=== PATIENT | female | born 1955 | race Caucasian/White ===

== ENCOUNTER 2017-09-28 10:50 | Inpatient (IN) | payer MEDICARE ==
[~2017-09-28] VITALS: Ht 154.9 cm; Wt 62.6 kg
[~2017-09-28 10:50] MED LIST: ATOR20TA PO; BISA10SU12 RC; CITA20TA19 PO; CLON1TAB PO; DOCU-141 PO; EZET10TA13 PO; FLUT1DIS28 INH; HYDR-3326 PO; HYDR-548 PO; IBUP-1953 PO; LEVO500T2 PO; MULT1TAB73 PO; NA P133E RC; OMEP20TA20 PO; Oxycodone Hcl PO; Prednisone PO; TIOT18CA3 IH
[2017-09-28] MEDS ORDERED: CEFEPIME HCL 1 G in IV DEXTROSE 5% 50 ML IV ONE (11:15)
[2017-09-28] MEDS ORDERED: METRONIDAZOLE 500 MG/NS 100ML 100 ML IV ONE ×2 (11:15→11:21)
[2017-09-28] MEDS ORDERED: IV NORMAL SALINE 1000 ML BAG IV ONE (11:15)
[2017-09-28] MEDS ORDERED: VANCOMYCIN IV 1,000 MG in IV DEXTROSE 5% 250 ML IV ONE (11:15)
[2017-09-28] MEDS ORDERED: ZOLP5TAB2 PO (11:20)
[2017-09-28] MEDS ORDERED: CITA40TA22 PO (11:20)
[2017-09-28] MEDS ORDERED: PANT40TA2 PO (11:20)
[2017-09-28] MEDS ORDERED: CLON0.5T PO (11:20)
[2017-09-28] MEDS ORDERED: MAG-55 PO (11:20)
[2017-09-28] MEDS ORDERED: CEFEPIME HCL 1 G VIAL ONE (11:21)
[2017-09-28] MEDS ORDERED: VANCOMYCIN IV 200 ML ONE (11:21)
[2017-09-28 11:28] LABS: BASOPHILS # (AUTO) 0.1 K/uL (0.0-8.0); BASOPHILS % (AUTO) 0.4 % (0.0-2.0); EOSINOPHILS # (AUTO) 0.1 K/uL (0.0-0.7); EOSINOPHILS % (AUTO) 0.4 % (0.0-7.0); HEMATOCRIT 37.1 % (31.2-41.9); LYMPHOCYTES # (AUTO) 1.8 K/uL (20.0-40.0); LYMPHOCYTES % (AUTO) 10.4 % (20.5-51.5); MEAN CORPUSCULAR HEMOGLOBIN 27.8 uug (24.7-32.8); MEAN CORPUSCULAR HGB CONC 33 g/dL (32.3-35.6); MEAN CORPUSCULAR VOLUME 85.5 fL (75.5-95.3); MONOCYTES # (AUTO) 1.3 K/uL (2.0-10.0); MONOCYTES % (AUTO) 7.7 % (0.0-11.0); NEUTROPHILS # (AUTO) 13.9 K/uL (1.8-8.9); NEUTROPHILS % (AUTO) 81.1 % (38.5-71.5); PLATELET COUNT (AUTO) 295 K/uL (179-408); RED BLOOD CELL COUNT(AUTO) 4.34 MIL/uL (3.63-4.92); WHITE BLOOD COUNT (AUTO) 17.2 K/uL (3.8-11.8)
[2017-09-28 11:36] LABS: CREATININE 1.1 mg/dL (0.6-1.3)
[2017-09-28] MEDS ORDERED: HYDROCODONE/APAP 5-325MG TABLET PO ONE (11:45)
[2017-09-28 11:51] LABS: BILIRUBIN,DIRECT 0.1 mg/dL (0.0-0.2); BILIRUBIN,TOTAL 0.4 mg/dL (0.2-1.0); TOTAL PROTEIN, SERUM 8.2 g/dL (6.4-8.2)
[2017-09-28] MEDS ORDERED: HYDROCODONE/APAP 5-325MG TABLET ONE (12:02)
[2017-09-28 13:42] LABS: *BILIRUBIN,URIN NEGATIVE (NEGATIVE); *BLOOD, URINE Trace-intact (NEGATIVE); *CLARITY,URINE SLIGHTLY CLOUDY (CLEAR); *COLOR,URINE YELLOW (YELLOW); *KETONES,URINE NEGATIVE (NEGATIVE); *PROTEIN,URINE NEGATIVE (NEGATIVE); *UROBILINOGEN,URINE 0.2 E.U./dl (NORMAL); LEUKOCYTE ESTERASE ,URINE 1+ (NEGATIVE); NITRITE, URINE POSITIVE (NEGATIVE); UGLUCOSE NEGATIVE (NEGATIVE)
[2017-09-28 13:53] LABS: BACTERIA,URINE FEW /HPF (NONE SEEN); SQUAMOUS EPITHELIAL CELL,UR FEW /HPF (NONE SEEN); WBC,URINE 20-50 /HPF (0-3)
[2017-09-28 14:25] VITALS: BP 148/64
[2017-09-28 15:11] VITALS: BP 151/60
[2017-09-28] MEDS ORDERED: HYDROMORPHONE 1 MG/1 ML DISP.SYRIN IV PRN (16:00)
[2017-09-28] MEDS: methylPREDNISolone SOD SUCC 40 MG/ML VIAL IV SCH ×3 (16:43→20:26)
[2017-09-28] MEDS: HYDROMORPHONE 2 MG/1 ML DISP.SYRIN IV PRN ×2 (16:45→21:38)
[2017-09-28 20:30] VITALS: BP 91/74
[2017-09-28] MEDS ORDERED: FAMOTIDINE. 20 MG/2 ML VIAL IV SCH (21:00)
[2017-09-28] MEDS ORDERED: Medication Not On Formulary EA (Mag Hydrox/Al Hydrox/Simeth (Maalox Max Strength Susp) 3 PO SCH (23:00)
[2017-09-28] MEDS ORDERED: PIPERACILLIN SODIUM/TAZO 3.375 GM VIAL ONE (23:44)
[2017-09-29] MEDS: ZOLPIDEM 5 MG TABLET PO PRN ×2 (00:13→22:20)
[2017-09-29] MEDS: IV D5/ 0.9% NACL 1,000 ML IV PRN (00:14)
[2017-09-29] MEDS: HYDROMORPHONE 2 MG/1 ML DISP.SYRIN IV PRN ×3 (01:41→09:49)
[2017-09-29 04:40] VITALS: BP 127/63
[2017-09-29] MEDS: PIPERACILLIN/TAZOBACTAM/D5W 3.375 G in PREMIXED 1 EACH IV SCH ×3 (05:19→22:20)
[2017-09-29] MEDS: PANTOPRAZOLE SODIUM 40 MG TABLET.DR PO SCH (06:48)
[2017-09-29] MEDS ORDERED: MAG HYDROX/AL HYDROX/SIMETH 30 ML LIQUID UDC PO PRN (07:30)
[2017-09-29] MEDS: ACIDOPHILUS/BULGARICUS CHEW TAB PO SCH ×2 (08:06→20:11)
[2017-09-29] MEDS: CITALOPRAM 20 MG TABLET PO SCH (08:06)
[2017-09-29] MEDS ORDERED: CLONAZEPAM 0.5 MG TABLET PO SCH (09:00)
[2017-09-29 11:48] VITALS: BP 157/55
[2017-09-29] MEDS ORDERED: HYDROMORPHONE HCL 2 MG TABLET PO PRN (12:00)
[2017-09-29] MEDS ORDERED: VANCOMYCIN IV 1 G in PREMIXED 0 EACH IV ONE (13:00)
[2017-09-29] MEDS: VANCOMYCIN IV 1 G in PREMIXED 0 EACH IV SCH (13:55)
[2017-09-29] MEDS: MORPHINE SULFATE IR 30 MG TABLET PO PRN ×2 (14:01→20:11)
[2017-09-29 15:50] VITALS: BP 155/73
[2017-09-29] MEDS: CLONAZEPAM 0.5 MG TABLET PO SCH ×3 (15:56→21:27)
[2017-09-29 20:28] VITALS: BP 155/62
[2017-09-30] MEDS: IV D5/ 0.9% NACL 1,000 ML IV PRN ×2 (01:56→18:16)
[2017-09-30] MEDS: MORPHINE SULFATE IR 30 MG TABLET PO PRN ×3 (02:11→17:59)
[2017-09-30 04:26] VITALS: BP 160/67
[2017-09-30] MEDS: PIPERACILLIN/TAZOBACTAM/D5W 3.375 G in PREMIXED 1 EACH IV SCH ×3 (05:09→22:02)
[2017-09-30] MEDS: PANTOPRAZOLE SODIUM 40 MG TABLET.DR PO SCH (06:32)
[2017-09-30] MEDS: CLONAZEPAM 0.5 MG TABLET PO SCH ×3 (08:25→17:59)
[2017-09-30] MEDS: ACIDOPHILUS/BULGARICUS CHEW TAB PO SCH ×2 (08:25→20:55)
[2017-09-30] MEDS: CITALOPRAM 20 MG TABLET PO SCH (08:25)
[2017-09-30 09:35] LABS: BASOPHILS # (AUTO) 0.1 K/uL (0.0-8.0); BASOPHILS % (AUTO) 0.5 % (0.0-2.0); EOSINOPHILS # (AUTO) 0.1 K/uL (0.0-0.7); EOSINOPHILS % (AUTO) 0.4 % (0.0-7.0); HEMATOCRIT 34.1 % (31.2-41.9); HEMOGLOBIN 11.3 g/dL (10.9-14.3); LYMPHOCYTES # (AUTO) 2.9 K/uL (20.0-40.0); LYMPHOCYTES % (AUTO) 18.8 % (20.5-51.5); MEAN CORPUSCULAR HEMOGLOBIN 28.1 uug (24.7-32.8); MEAN CORPUSCULAR HGB CONC 33 g/dL (32.3-35.6); MEAN CORPUSCULAR VOLUME 85.2 fL (75.5-95.3); MONOCYTES # (AUTO) 0.9 K/uL (2.0-10.0); MONOCYTES % (AUTO) 5.8 % (0.0-11.0); NEUTROPHILS # (AUTO) 11.4 K/uL (1.8-8.9); NEUTROPHILS % (AUTO) 74.5 % (38.5-71.5); PLATELET COUNT (AUTO) 217 K/uL (179-408); RED BLOOD CELL COUNT(AUTO) 4.01 MIL/uL (3.63-4.92); WHITE BLOOD COUNT (AUTO) 15.3 K/uL (3.8-11.8)
[2017-09-30 09:47] LABS: CREATININE 0.9 mg/dL (0.6-1.3); MAGNESIUM 1.6 mg/dL (1.8-2.4); PHOSPHOROUS 3.5 mg/dL (2.5-4.9); POTASSIUM 3.5 mmol/L (3.5-5.1)
[2017-09-30 11:50] VITALS: BP 122/53
[2017-09-30] MEDS: VANCOMYCIN IV 1 G in PREMIXED 0 EACH IV SCH (12:28)
[2017-09-30] MEDS ORDERED: MORPHINE SULFATE 2 MG/1 ML DISP.SYRIN IV PRN (14:15)
[2017-09-30] MEDS: MORPHINE SULFATE 4 MG/1 ML DISP.SYRIN IV PRN ×2 (14:56→20:58)
[2017-09-30 15:50] VITALS: BP 108/71
[2017-09-30 20:28] VITALS: BP 103/73
[2017-10-01 03:20] VITALS: BP 114/59
[2017-10-01] MEDS: MORPHINE SULFATE 4 MG/1 ML DISP.SYRIN IV PRN ×2 (03:21→09:10)
[2017-10-01 04:28] VITALS: BP 122/50
[2017-10-01] MEDS: PIPERACILLIN/TAZOBACTAM/D5W 3.375 G in PREMIXED 1 EACH IV SCH ×2 (05:05→13:00)
[2017-10-01] MEDS: IV D5/ 0.9% NACL 1,000 ML IV PRN (06:30)
[2017-10-01] MEDS: PANTOPRAZOLE SODIUM 40 MG TABLET.DR PO SCH (06:30)
[2017-10-01 07:14] LABS: BASOPHILS % (AUTO) 0.6 % (0.0-2.0); EOSINOPHILS # (AUTO) 0.2 K/uL (0.0-0.7); EOSINOPHILS % (AUTO) 2.5 % (0.0-7.0); HEMATOCRIT 32.1 % (31.2-41.9); HEMOGLOBIN 10.5 g/dL (10.9-14.3); LYMPHOCYTES # (AUTO) 2.9 K/uL (20.0-40.0); LYMPHOCYTES % (AUTO) 34.2 % (20.5-51.5); MEAN CORPUSCULAR HEMOGLOBIN 27.9 uug (24.7-32.8); MEAN CORPUSCULAR HGB CONC 33 g/dL (32.3-35.6); MEAN CORPUSCULAR VOLUME 84.8 fL (75.5-95.3); MONOCYTES # (AUTO) 0.9 K/uL (2.0-10.0); MONOCYTES % (AUTO) 10.6 % (0.0-11.0); NEUTROPHILS # (AUTO) 4.4 K/uL (1.8-8.9); NEUTROPHILS % (AUTO) 52.1 % (38.5-71.5); PLATELET COUNT (AUTO) 233 K/uL (179-408); RED BLOOD CELL COUNT(AUTO) 3.78 MIL/uL (3.63-4.92); WHITE BLOOD COUNT (AUTO) 8.5 K/uL (3.8-11.8)
[2017-10-01] MEDS: MORPHINE SULFATE IR 30 MG TABLET PO PRN (07:37)
[2017-10-01] MEDS: CITALOPRAM 20 MG TABLET PO SCH (08:23)
[2017-10-01] MEDS: ACIDOPHILUS/BULGARICUS CHEW TAB PO SCH (08:23)
[2017-10-01] MEDS: CLONAZEPAM 0.5 MG TABLET PO SCH ×3 (08:24→16:18)
[2017-10-01 08:37] LABS: CREATININE 0.6 mg/dL (0.6-1.3); MAGNESIUM 1.9 mg/dL (1.8-2.4); PHOSPHOROUS 4.1 mg/dL (2.5-4.9); POTASSIUM 3.7 mmol/L (3.5-5.1)
[2017-10-01] MEDS ORDERED: diphenhydrAMINE 25 MG CAP PO PRN (11:30)
[2017-10-01 11:39] VITALS: BP 109/46
[2017-10-01] MEDS: OXYCODONE/APAP 5-325 MG TABLET PO SCH ×2 (12:09→16:18)
[2017-10-01] MEDS ORDERED: VANCOMYCIN IV 1,750 MG in IV NORMAL SALINE 500 ML IV ONE (14:00)
[2017-10-01 16:30] VITALS: BP 107/60
[2017-10-01] MEDS ORDERED: CITA40TA22 PO (20:23)
[2017-10-01] MEDS ORDERED: ZOLP5TAB2 PO (20:23)
[2017-10-01] MEDS ORDERED: DIPH25CA83 PO (20:23)
[2017-10-01] MEDS ORDERED: RXVAN IV (20:23)
[2017-10-01] MEDS ORDERED: PANT40TA2 PO (20:23)
[2017-10-01] MEDS ORDERED: CLON0.5T PO (20:23)
[2017-10-01] MEDS ORDERED: OXYC-128 PO (20:23)
[2017-10-01] MEDS ORDERED: MAG-55 PO (20:23)
[2017-10-01] MEDS ORDERED: ACID1TAB12 PO (20:23)
[2017-10-01] MEDS ORDERED: PIPE3.379 IV (20:23)
[2017-10-05] MEDS ORDERED: CLON0.5T4 PO (11:44)
[2017-10-05] MEDS ORDERED: CITA20TA19 PO (11:44)
[2017-10-05] MEDS ORDERED: HYDR-3895 PO (11:44)
[2017-10-05] MEDS ORDERED: RXVAN XX (11:44)
== END 2017-10-01 19:00 | DRG 872 ==
LOC: ER 10:50 → MED 13:51 → MERGE 13:51
PROVIDERS: ADMIT Internal Medicine; ATTEND Internal Medicine
DX: A41.02 Sepsis due to Methicillin resistant Staphylococcus aureus (principal); I11.9 Hypertensive heart disease without heart failure; F32.9 Major depressive disorder, single episode, unspecified; L03.211 Cellulitis of face; N39.0 Urinary tract infection, site not specified; K13.0 Diseases of lips; B95.62 Methicillin resistant Staphylococcus aureus infection as the cause of diseases classified elsewhere; G89.4 Chronic pain syndrome; M79.7 Fibromyalgia; Z59.0 Homelessness; K08.109 Complete loss of teeth, unspecified cause, unspecified class; Z91.19 Patient's noncompliance with other medical treatment and regimen; B96.20 Unspecified Escherichia coli [E. coli] as the cause of diseases classified elsewhere; F41.9 Anxiety disorder, unspecified; J44.9 Chronic obstructive pulmonary disease, unspecified; A49.02 Methicillin resistant Staphylococcus aureus infection, unspecified site
CPT/HCPCS: 36415; 70030-TC; 70486; 71045; 83605; 83735; 84100; 85025; 85730; 87040; 87070; 87077; 87086; 87400; 93005; A4663; J0692; J1170; J2270; J2543; J2920; J3370; J3490; J7030; J7040; J7042; Q0163

== ENCOUNTER 2017-10-01 17:46 | Inpatient (IN) | payer MEDICARE ==
[~2017-10-01] VITALS: Ht 154.9 cm; Wt 60.8 kg
[~2017-10-01 17:46] MED LIST changes: +CITA40TA22 PO; +CLON0.5T PO; +MAG-55 PO; +PANT40TA2 PO; +ZOLP5TAB2 PO
[2017-10-01] MEDS ORDERED: ACETAMINOPHEN 325 MG TABLET PO PRN (18:30)
[2017-10-01] MEDS ORDERED: MAGNESIUM HYDROXIDE 30 ML LIQUID UDC PO PRN (18:30)
[2017-10-01] MEDS ORDERED: MAG HYDROX/AL HYDROX/SIMETH 30 ML LIQUID UDC PO PRN (18:30)
[2017-10-01] MEDS ORDERED: ZOLPIDEM 5 MG TABLET PO PRN (18:30)
[2017-10-01] MEDS: LORAZEPAM 1 MG TABLET PO PRN (19:51)
[2017-10-01] MEDS ORDERED: OXYC-128 PO (20:23)
[2017-10-01] MEDS ORDERED: ZOLP5TAB2 PO (20:23)
[2017-10-01] MEDS ORDERED: CITA40TA22 PO (20:23)
[2017-10-01] MEDS ORDERED: RXVAN IV (20:23)
[2017-10-01] MEDS ORDERED: PIPE3.379 IV (20:23)
[2017-10-01] MEDS ORDERED: ACID1TAB12 PO (20:23)
[2017-10-01] MEDS ORDERED: PANT40TA2 PO (20:23)
[2017-10-01] MEDS ORDERED: MAG-55 PO (20:23)
[2017-10-01] MEDS ORDERED: CLON0.5T PO (20:23)
[2017-10-01] MEDS ORDERED: DIPH25CA83 PO (20:23)
[2017-10-01] MEDS ORDERED: BULGARICUS PO SCH (21:00)
[2017-10-01] MEDS ORDERED: Medication Not On Formulary EA (Diphenhydramine Hcl (Benadryl) 25 MG) PO PRN (21:00)
[2017-10-01] MEDS ORDERED: ZOLPIDEM 5 MG TABLET PO SCH (21:00)
[2017-10-01] MEDS ORDERED: ACIDOPHILUS PO SCH (21:00)
[2017-10-01] MEDS ORDERED: Medication Not On Formulary EA (Mag Hydrox/Al Hydrox/Simeth (Maalox Max Strength Susp) 3 PO SCH ×2 (21:00)
[2017-10-01 21:02] VITALS: BP 105/38
[2017-10-01] MEDS: OXYCODONE/APAP 5-325 MG TABLET PO PRN (21:15)
[2017-10-01] MEDS ORDERED: PIPERACILLIN/TAZOBACTAM/D5W 100 ML IV ONE (21:51)
[2017-10-01 21:56] VITALS: BP 118/54
[2017-10-01] MEDS: PIPERACILLIN/TAZO/D5W 3.375 GM FROZEN IV SCH (22:29)
[2017-10-02] MEDS: OXYCODONE/APAP 5-325 MG TABLET PO PRN ×5 (01:20→18:02)
[2017-10-02] MEDS: PIPERACILLIN/TAZO/D5W 3.375 GM FROZEN IV SCH (05:53)
[2017-10-02 07:30] LABS: CREATININE 0.7 mg/dL (0.6-1.3); POTASSIUM 4.1 mmol/L (3.5-5.1)
[2017-10-02] MEDS ORDERED: PANTOPRAZOLE SODIUM 40 MG TABLET.DR PO SCH (07:30)
[2017-10-02] MEDS: PANTOPRAZOLE SODIUM 40 MG TABLET.DR PO SCH (07:58)
[2017-10-02] MEDS: ACIDOPHILUS/BULGARICUS CHEW TAB GT SCH ×2 (08:00→20:27)
[2017-10-02] MEDS: LORAZEPAM 1 MG TABLET PO PRN (08:06)
[2017-10-02] MEDS ORDERED: HYDROXYZINE PAMOATE 25 MG CAPSULE PO PRN (09:00)
[2017-10-02] MEDS ORDERED: CLONAZEPAM 0.5 MG TABLET PO SCH (09:00)
[2017-10-02] MEDS ORDERED: VANCOMYCIN IV 1 G in PREMIXED 0 EACH IV SCH (09:00)
[2017-10-02] MEDS: CITALOPRAM 20 MG TABLET PO SCH (10:35)
[2017-10-02 10:54] VITALS: BP 130/47
[2017-10-02] MEDS: VANCOMYCIN IV 1 G in PREMIXED 0 EACH IV SCH ×2 (11:21→20:46)
[2017-10-02] MEDS ORDERED: PIPERACILLIN/TAZOBACTAM/D5W 3.375 G in PREMIXED 1 EACH IV SCH (14:00)
[2017-10-02 14:36] VITALS: BP 100/53
[2017-10-02] MEDS: CLONAZEPAM 0.5 MG TABLET PO SCH ×2 (15:39→19:19)
[2017-10-02 20:27] VITALS: BP 99/66
[2017-10-03] MEDS: OXYCODONE/APAP 5-325 MG TABLET PO PRN ×6 (01:38→22:13)
[2017-10-03] MEDS: VANCOMYCIN IV 1 G in PREMIXED 0 EACH IV SCH ×2 (06:13→18:11)
[2017-10-03] MEDS: PANTOPRAZOLE SODIUM 40 MG TABLET.DR PO SCH (06:15)
[2017-10-03] MEDS: CLONAZEPAM 0.5 MG TABLET PO SCH ×3 (07:56→17:40)
[2017-10-03] MEDS: ACIDOPHILUS/BULGARICUS CHEW TAB GT SCH ×2 (08:00→20:19)
[2017-10-03] MEDS: CITALOPRAM 20 MG TABLET PO SCH (08:00)
[2017-10-03 11:27] VITALS: BP 102/36
[2017-10-03] MEDS: diphenhydrAMINE 25 MG CAP PO PRN ×2 (11:31→22:12)
[2017-10-03 15:41] VITALS: BP 110/55
[2017-10-03 21:05] VITALS: BP 111/47
[2017-10-04] MEDS: VANCOMYCIN IV 1 G in PREMIXED 0 EACH IV SCH ×3 (02:30→22:53)
[2017-10-04] MEDS: OXYCODONE/APAP 5-325 MG TABLET PO PRN ×5 (02:38→21:42)
[2017-10-04 06:09] VITALS: BP 101/45
[2017-10-04] MEDS: PANTOPRAZOLE SODIUM 40 MG TABLET.DR PO SCH (06:46)
[2017-10-04] MEDS: CLONAZEPAM 0.5 MG TABLET PO SCH ×3 (08:10→17:03)
[2017-10-04] MEDS: CITALOPRAM 20 MG TABLET PO SCH (08:10)
[2017-10-04] MEDS: ACIDOPHILUS/BULGARICUS CHEW TAB GT SCH ×2 (08:10→20:57)
[2017-10-04] MEDS ORDERED: PETROLATUM,WHITE JELLY 28.35 GM TUBE TP PRN (11:30)
[2017-10-04 11:46] VITALS: BP 94/73
[2017-10-04] MEDS: DOCUSATE SODIUM 250 MG CAPSULE PO SCH (13:34)
[2017-10-04 16:20] VITALS: BP 112/43
[2017-10-04 20:42] VITALS: BP 120/55
[2017-10-05] MEDS: OXYCODONE/APAP 5-325 MG TABLET PO PRN ×5 (02:34→19:42)
[2017-10-05] MEDS: PANTOPRAZOLE SODIUM 40 MG TABLET.DR PO SCH (06:29)
[2017-10-05] MEDS: ACIDOPHILUS/BULGARICUS CHEW TAB GT SCH ×2 (08:32→19:42)
[2017-10-05] MEDS: CLONAZEPAM 0.5 MG TABLET PO SCH ×3 (08:32→18:08)
[2017-10-05] MEDS: CITALOPRAM 20 MG TABLET PO SCH (08:32)
[2017-10-05] MEDS: DOCUSATE SODIUM 250 MG CAPSULE PO SCH (08:37)
[2017-10-05] MEDS: VANCOMYCIN IV 1 G in PREMIXED 0 EACH IV SCH ×2 (09:21→19:16)
[2017-10-05 11:06] VITALS: BP 99/44
[2017-10-05] MEDS ORDERED: CLON0.5T4 PO (11:44)
[2017-10-05] MEDS ORDERED: RXVAN XX (11:44)
[2017-10-05] MEDS ORDERED: HYDR-3895 PO (11:44)
[2017-10-05] MEDS ORDERED: CITA20TA19 PO (11:44)
[2017-10-05 15:24] VITALS: BP 100/46
[2017-10-05 20:00] VITALS: BP 99/44
== END 2017-10-05 20:40 | DRG 885 ==
LOC: MERGE 17:49 → GPSOV 17:49
PROVIDERS: ADMIT Psychiatry & Neurology Psychosomatic Medicine; ATTEND Internal Medicine
DX: F33.2 Major depressive disorder, recurrent severe without psychotic features (principal); F17.210 Nicotine dependence, cigarettes, uncomplicated; N39.0 Urinary tract infection, site not specified; L03.211 Cellulitis of face; F41.9 Anxiety disorder, unspecified; G89.4 Chronic pain syndrome; J44.9 Chronic obstructive pulmonary disease, unspecified; B96.89 Other specified bacterial agents as the cause of diseases classified elsewhere; B96.29 Other Escherichia coli [E. coli] as the cause of diseases classified elsewhere; M79.7 Fibromyalgia; I10 Essential (primary) hypertension; Z59.0 Homelessness; B95.62 Methicillin resistant Staphylococcus aureus infection as the cause of diseases classified elsewhere; F19.10 Other psychoactive substance abuse, uncomplicated; K21.9 Gastro-esophageal reflux disease without esophagitis; Z98.51 Tubal ligation status
CPT/HCPCS: 36415; 87040; 97165; J2543; J3370; J7040; Q0163